=== PATIENT | male | born 1965 | race Asian ===

== ENCOUNTER 2020-09-20 15:12 | Emergency (ER) | payer OTHER, SELFPAY ==
[~2020-09-20] VITALS: Ht 170.2 cm; Wt 65.8 kg
[2020-09-20 15:13] VITALS: Ht 170.2 cm; Wt 65.8 kg
[2020-09-20 17:24] VITALS: BP 130/83
== END 2020-09-20 17:24 | disposition home or self-care (01) ==
LOC: ED 15:12
DX: R11.2 Nausea with vomiting, unspecified (principal); R50.9 Fever, unspecified; Z20.828 Contact with and (suspected) exposure to other viral communicable diseases
CPT/HCPCS: Q0162; U0003